=== PATIENT | female | born 1955 | race Caucasian/White ===

== ENCOUNTER 2023-04-06 12:55 | Outpatient (OUT) | payer MEDICARE, OTHER, SELFPAY ==
--- NOTE | 2023-04-06 | XR_ITS ---
The [address] [address] Patient Name: VIKAS CLARK MRN: [id number] date: 1955 Sex: F Assigned Patient Location: [facility] Current Patient Location: [facility] Accession/Order Number: [id number] Exam Date: 04/06/2023 13:00 Report Date: 04/08/2023 13:19 At the request of: JEFFREY JUNG Procedure: XR foot LT min 3V EXAM: XR foot LT min 3V HISTORY: LEFT FOOT PAIN COMPARISON: 11/05/2022. TECHNIQUE: 3 views of the left foot were obtained. FINDINGS: Redemonstration of calcaneal osteotomy with surgical fixation screws. Postsurgical changes at the anterior calcaneus. Postsurgical changes at the medial cuneiform bone. The lucency at the medial cuneiform bone remains visible without evidence of callus deposition. There is soft tissue swelling at the dorsal aspect of the midfoot. Dense enthesopathic changes are seen at the distal Achilles tendon. There is severe osteoarthritis involving the first metatarsophalangeal joint and at the interphalangeal joints of the toes. There is periosteal reaction involving the lateral aspect of the fourth metatarsal bone which may be related to prior stress fracture. XR/XR foot LT min 3V IMPRESSION: 1. No evidence of healing at the medial cuneiform bone. The fracture lucency remains visible. 2. Progressive healing seen at the calcaneal osteotomy. The posterior osteotomy site remains visible. Anterior osteotomy site shows interval progressive but incomplete healing. 3. Periosteal reaction at the lateral aspect of the fourth metatarsal bone may be related to prior stress fracture/chronic infection. 4. 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 Electronically authenticated by: CHANDLER WONG Date: 04/08/2023 13:19
== END 2023-04-06 12:56 | disposition home or self-care (01) ==
LOC: RAD 12:55
PROVIDERS: Visit Provider Podiatrist Foot & Ankle Surgery
DX: M21.42 Flat foot [pes planus] (acquired), left foot (principal)
CPT/HCPCS: 73630

== ENCOUNTER 2023-10-12 13:54 | Outpatient (OUT) | payer MEDICARE, SELFPAY ==
--- NOTE | 2023-10-12 | XR_ITS ---
The [address] [address] Patient Name: VIKAS CLARK MRN: [id number] date: 1955 Sex: F Assigned Patient Location: Current Patient Location: Accession/Order Number: [id number] Exam Date: 10/12/2023 13:55 Report Date: 10/14/2023 10:01 At the request of: JEFFREY JUNG Procedure: XR foot LT min 3V PROCEDURE: XR foot LT min 3V DATE: 10/12/2023 1:55 PM EST COMPARISONS: 04/06/2023 CLINICAL INDICATION: LEFT FOOT PAIN FINDINGS: There is no evidence of fractures or other acute osseous abnormalities. There is again evidence of calcaneal osteotomy. Surgical fixation screws remain in stable position. Moderate-sized spur off the posterior inferior os calcis persists. Spurring off the posterior os calcis persists. Moderate mid foot degenerative changes are again identified. Postsurgical changes medial cuneiform remain stable. Prominent first metatarsal phalangeal degenerative change again identified. Scattered moderate interphalangeal degenerative changes are again identified, stable. Benign periosteal reaction proximal aspect third and fourth metatarsals persists, stable. This may be related to old injury. XR/XR foot LT min 3V IMPRESSION: Left foot radiographs show no evidence of acute abnormalities. Stable postop changes. Stable scattered degenerative changes. Electronically authenticated by: BERKLEY GARCIA Date: 10/14/2023 10:01
== END 2023-10-12 13:55 | disposition home or self-care (01) ==
LOC: EC 13:55
PROVIDERS: Visit Provider Podiatrist Foot & Ankle Surgery
DX: M21.42 Flat foot [pes planus] (acquired), left foot (principal); Z98.890 Other specified postprocedural states
CPT/HCPCS: 73630